=== PATIENT | female | born 1990 | race Caucasian/White ===

== ENCOUNTER 2021-02-18 08:04 | Emergency (ER) | payer BC ==
[~2021-02-18] VITALS: Ht 177.8 cm; Wt 102.1 kg
[2021-02-18 08:10] VITALS: BP_SYST 112
--- NOTE | 2021-02-18 08:20 | NUR ---
Patient to ER bed 8 to gown for evaluation. Side rails up. Report given to Kassandra ELKINS
--- NOTE | 2021-02-18 08:22 | NUR ---
PT ABLE TO AMBULATE TO BATHROOM AND VOID, SPECIMEN COLLECTED AND SENT TO LAB
--- NOTE | 2021-02-18 08:25 | NUR ---
PT CAME IN FROM HOME C/O RUQ ABD PAIN X1 WEEK RADIATING TO BACK. PT STATES SHE WAS SEEN AT AN URGENT CARE YESTERDAY BUT DOES NOT REMEMBER HER DX. SHE REPORTS CONTINUING PAIN. PT IS AMBULATORY, AAOX4, V/S STABLE
--- NOTE | 2021-02-18 08:30 | NUR ---
ER DR. GREER AT THE BEDSIDE EXAMINING PT
[2021-02-18] MEDS ORDERED: KETOROLAC TROMETHAMINE 60 MG/2 ML VIAL IM ONE (08:45)
[2021-02-18] MEDS ORDERED: MAG HYDROX/AL HYDROX/SIMETH 30 ML, DICYCLOMINE HCL 20 MG, LIDOCAINE VISCOUS 2% 15ML (PO... PO ONE ×3 (08:45)
--- NOTE | 2021-02-18 08:45 | NUR ---
LAB AT THE BEDSIDE FOR BLOOD DRAW
[2021-02-18 08:58] LABS: EOSINOPHILS # (AUTO) 0.1 K/uL (0.0-0.4); MEAN CORPUSCULAR HEMOGLOBIN 29 pg (27-31)
[2021-02-18 09:01] LABS: CALCIUM 9.1 mg/dL (8.4-11.0); CREATININE 0.9 mg/dL (0.55-1.30); POTASSIUM 4.1 mmol/L (3.5-5.1)
[2021-02-18 09:02] LABS: MEAN CORPUSCULAR HGB CONC 33 % (32-36); MEAN CORPUSCULAR VOLUME 89 fL (79.0-98.0)
[2021-02-18 09:06] LABS: ALBUMIN 3.3 g/dL (3.4-4.8); TOTAL BILIRUBIN 0.5 mg/dL (0.0-1.0)
[2021-02-18 09:11] LABS: HEMATOCRIT 41.5 % (36-48); HEMOGLOBIN 13.7 g/dL (12.0-16.0); RED BLOOD CELL COUNT(AUTO) 4.68 MIL/uL (4.2-6.2); RED CELL DISTRIBUTION WIDTH 13.4 % (9.0-15.0); WHITE BLOOD COUNT (AUTO) 15.4 K/uL (4.8-10.8)
[2021-02-18 09:12] LABS: BASOPHILS # (AUTO) 0.1 K/uL (0.0-0.2); BASOPHILS % (AUTO) 0.4 % (0.0-2.0); EOSINOPHILS % (AUTO) 0.7 % (0.0-4.0); LYMPHOCYTES # (AUTO) 3.6 K/uL (1.0-5.5); LYMPHOCYTES % (AUTO) 23.2 % (20.5-51.5); MONOCYTES # (AUTO) 0.8 K/uL (0.0-1.0); MONOCYTES % (AUTO) 5.2 % (1.7-9.3); NEUTROPHILS # (AUTO) 10.8 K/uL (1.8-7.7); NEUTROPHILS % (AUTO) 70.5 % (40.0-70.0); PLATELET COUNT (AUTO) 277 K/uL (130-430)
--- NOTE | 2021-02-18 09:23 | NUR ---
Patient transported to radiology via WC, accompanied by STAFF.
[2021-02-18] MEDS ORDERED: SUCR1ORA4 PO (10:50)
[2021-02-18] MEDS ORDERED: TRAM50TA PO (10:50)
[2021-02-18 10:57] VITALS: BP_SYST 112
--- NOTE | 2021-02-18 10:58 | NUR ---
Patient given written and verbal discharge instructions and verbalizes understanding. ER MD discussed with patient the results and treatment provided. Patient in stable condition. ID arm band removed. Rx of SUCRALFATE AND TRAMADOL given. Patient educated on pain management and to follow up with PMD. Pain Scale 0/10. Opportunity for questions provided and answered. Medication side effect fact sheet provided.
== END 2021-02-18 10:58 | disposition home or self-care (01) ==
LOC: SED 08:04
DX: R10.13 Epigastric pain (principal); Z79.899 Other long term (current) drug therapy
CPT/HCPCS: 36415; 74176; 76376; 80053; 81025; 83690; 85025; 96372; 99284; J1885; J2001